=== PATIENT | male | born 1955 | race Caucasian/White ===

== ENCOUNTER → 2017-04-15 | Outpatient (CLI) | payer OTHER ==
--- NOTE | 2017-04-15 11:57 | DIAGNOSTIC IMAGING REPORT ---
PROCEDURE: MR LTD LOWER EXT JOINT-RIGHT INDICATION: OA RT KNEE Gallo and Nephew protocol for preop knee replacement. TECHNIQUE: Limited MRI of the knee was performed with high-resolution PD sagittal images. In addition, AP radiographs of the lower extremity were obtained with scanogram markers. Diagnostic interpretation is not provided. IMPRESSION: 1. Preoperative Gallo and Nephew protocol for knee prosthesis.
== END ==
LOC: MRI SRH 10:30
DX: M17.11 Unilateral primary osteoarthritis, right knee (principal)

== ENCOUNTER 2017-05-02 15:20 | Outpatient (CLI) | payer OTHER ==
--- NOTE | 2017-05-02 16:38 | DIAGNOSTIC IMAGING REPORT ---
PROCEDURE: XR CHEST 2 VIEW INDICATION: PRE OP TECHNIQUE: PA and lateral views. COMPARISON: None. FINDINGS: Lungs are clear and hyperexpanded. Heart and mediastinum are normal. Thorax is normal. IMPRESSION: 1. Negative chest.
[2017-05-10] MEDS ORDERED: AMLODIPINE BESYL5 MG PO (11:05)
[2017-05-10] MEDS ORDERED: MULTIPLE VITAMIN PO (11:07)
[2017-05-10] MEDS ORDERED: LISINOPRIL10 MG PO (11:07)
[2017-05-10] MEDS ORDERED: VITAMIN B121000 CR PO (11:08)
[2017-05-10] MEDS ORDERED: ASPIRIN ADULT L81 M1 PO (11:09)
== END 2017-05-02 23:00 ==
LOC: RT SRH 15:20
DX: Z01.812 Encounter for preprocedural laboratory examination (principal); Z01.818 Encounter for other preprocedural examination
CPT/HCPCS: 90001; 90004; 90100; 90155; 91004; 91286; 94060; 95059; 95150